=== PATIENT | female | born 1975 | race Caucasian/White ===

== ENCOUNTER 2018-11-02 19:51 | Observation (INO) | payer BC ==
[2018-11-02] MEDS ORDERED: Morphine 4 MG/ML VIAL ONE ×3 (20:05→21:10)
[2018-11-02] MEDS ORDERED: Adacel (T-DAP) 0.5 ML SYRINGE ONE (20:05)
[2018-11-02] MEDS ORDERED: Ondansetron PF 4 MG/2 ML Vial ONE (20:05)
[2018-11-02 20:13] LABS: #Basophils 0.1 thou/uL (0.0-0.2); #Eosinphils 0.3 thou/uL (0.0-0.7); #Lymphocytes 2.2 thou/uL (1.20-3.40); #Monocytes 0.5 thou/uL (0.11-0.59); #Neutrophils 3.9 thou/uL (1.40-6.50); %Eosinophils 3.6 % (0.0-10.0); %Lymphocytes 31.8 % (21.0-51.0); %Monocytes 7.4 % (0.0-10.0); %Neutrophils 56.2 % (42.0-75.0); Hemoglobin 13.3 g/dL (12.0-16.0); Mean Corpuscular HGB CONC 34.3 g/dL (32.0-36.0); Mean Corpuscular Volume 93.4 fL (78.0-98.0); Mean Platelet Volume 7.2 fL (7.4-10.4); Platelet Count 314 thou/uL (130-400); RBC Distribution Width 12.2 % (11.5-14.5); Red Blood Cell (RBC) Count 4.16 mill/uL (4.20-5.40)
[2018-11-02 20:20] LABS: PTT 27.4 SEC (22.9-36.1); Prothrombin Time 13.4 SEC (12.0-14.7)
[2018-11-02 20:23] LABS: D-Dimer Test Less than 0.27 *mcg/mL (0.27-0.43)
[2018-11-02 20:30] LABS: ALT (SGPT) 14 U/L (8-55); AST (SGOT) 15 U/L (5-34); Alkaline Phosphatase 85 U/L (40-150); Anion Gap 13 mmol/L (10-20); BUN (Urea Nitrogen) 14 mg/dL (7.0-18.7); Bilirubin, Total 0.3 mg/dL (0.2-1.2); CK (CPK) 53 U/L (29-168); Calc. Creatinine Clearance 0 mL/min (70-130); Calcium 10.4 mg/dL (7.8-10.44); Carbon Dioxide 28 mmol/L (22-29); Chloride 104 mmol/L (98-107); Estimated GFR-MDRD 76; Globulin 3.1 g/dL (2.4-3.5); Glucose 91 mg/dL (70-105); Potassium 3.6 mmol/L (3.5-5.1); Protein, Total 8.1 g/dL (6.0-8.3); Sodium 141 mmol/L (136-145)
[2018-11-02 21:00] LABS: Bilirubin Small (Negative); Blood, Urine Negative (Negative); Glucose, Urine (Dipstick) Negative (Negative); Leukocyte Small (Negative); Nitrite Negative (Negative); Protein, Urine (Dipstick) Trace mg/dL (Neg-Trace); Specific Gravity, Urine 1.025 (1.005-1.030); pH, Urine 6.5 (5.0-9.0)
[2018-11-02 21:01] LABS: Clarity Hazy (Clear)
[2018-11-02 21:02] LABS: Bacteria/HPF 1+ HPF (None Seen); RBC/HPF None Seen HPF (0-3); Squamous Epithelial 21-50 HPF (0-3)
[2018-11-02] MEDS ORDERED: SODIUM CHLORIDE IVPB SCH (21:30)
[2018-11-02] MEDS ORDERED: [UNRECOGNIZED DRUG - OTHER] IVPB SCH (21:30)
[2018-11-02] MEDS ORDERED: HOLD ALL ANTI-COAGULANTS/ANTI-PLATELETS/NSAIDS PO SCH (21:30)
[2018-11-02] MEDS ORDERED: CROTALIDAE POLYVALENT IMMUNE FAB IVPB SCH (21:30)
[2018-11-02 21:46] VITALS: BMI 21.2
[2018-11-02 21:46] LABS: Fibrinogen Less than 15 mg/dL (253-463)
[2018-11-02] MEDS ORDERED: diphenhydrAMINE 50 MG/ML VIAL IVP PRN (22:00)
[2018-11-02] MEDS ORDERED: Acetaminophen 500 MG TAB PO PRN (22:00)
[2018-11-02] MEDS ORDERED: Ondansetron PF 4 MG/2 ML Vial IVP PRN (22:00)
[2018-11-02] MEDS ORDERED: Morphine 4 MG/ML VIAL SLOW IVP PRN (22:00)
[2018-11-02 22:09] LABS: Pregu Control Background? CLEAR/WHITE (CLR/WHITE); Pregu Control Bar Appear? YES (CONTROL BAR); Specific Gravity 1.025 (1.002-1.036)
[2018-11-02 22:13] LABS: Pregnancy Test - Urine (BHCG) Negative (Negative)
[2018-11-02] MEDS ORDERED: Sodium Chloride 0.9% 1,000 ML IV SCH (23:45)
--- NOTE | 2018-11-03 04:38 | HP ---
CHIEF COMPLAINT: Copperhead snake bite. HISTORY OF PRESENT ILLNESS: Ms. Morley is a 43-year-old woman who presents with a copperhead snake bite to the inside of the right third finger. She reports noting dull aching pain with notable immediate swelling in her finger and then her hand. At this present time, edema tracks up just proximal to her elbow and is circumferential. The patient is receiving [employer] at present. She states she was pulling weeds from her garden. She saw and recognized the snake. She denies any numbness or tingling in her fingers. Reports pain in her hand with some limited range of motion. Pain has started to settle down to approximately 4/10 following morphine. She was initially seen at the [facility] ER where CroFab was ordered and initiated when she arrived here at [facility]. There was a slight delay in administering her treatment due to the need for test. This did come back negative and treatment was initiated. She did receive IV fluids at [facility] ER, a total of 1 L. REVIEW OF SYSTEMS: The patient denies having any headaches or dizziness. Reports feeling mildly nauseated, which she feels is associated with the morphine. No vomiting. No chest pain, palpitations, or shortness of breath. All other review of systems are negative. ALLERGIES: NO KNOWN DRUG ALLERGIES. CURRENT MEDICATIONS: 1. Lipitor. 2. Prilosec. 3. Sertraline. PAST MEDICAL HISTORY: 1. Tetanus up to date. 2. Hyperlipidemia. 3. Depression. SURGICAL HISTORY: None. SOCIAL HISTORY: She reports drinking 1 glass of wine a day. No smoking and no illicit drug use. PHYSICAL EXAMINATION: GENERAL: The patient appears well developed, well nourished, and is in no acute distress. VITAL SIGNS: Temperature 98.1, pulse 83, respirations 20, O2 saturation 100% on room air, blood pressure 115/59. HEENT: Normocephalic and atraumatic. Pupils are equal, round, and reactive to light. Sclerae without icterus. Oropharynx is clear. NECK: Supple without lymphadenopathy. LUNGS: Clear to auscultation bilaterally without wheezes, rales, or rhonchi. CARDIAC: Regular rate and rhythm. ABDOMEN: Soft, nontender, nondistended. Normoactive bowel sounds present. EXTREMITIES: No lower leg edema. Right upper extremity notable for edema involving her fingers up to just proximal to her elbow. No restrictions with range of motion to her elbow joint. She has slight ecchymosis involving the third right finger with bite harrington on the side of her finger. Has limited flexion of all fingers, but sensation is intact. Pulses equal bilaterally . No cyanosis. Not cool to touch. Extremity feels warm and dry. NEUROLOGIC: Alert and oriented x3. SKIN: Otherwise without any rash or jaundice. LABORATORY DATA: White blood count 7, hemoglobin 13.3, hematocrit 38.9, platelets 314. PT 13.4, INR 1, PTT 27.4, fibrinogen 15. D-dimer negative. Sodium 141, potassium 3. D-dimer less than 0.27. Sodium 141, potassium 3.6, chloride 104, carbon dioxide 28, anion gap 13, BUN 14, creatinine 0.82, GFR 76, glucose 91, calcium 10.4. Total bilirubin 0.3. AST 15, ALT 14, alkaline phosphatase 85. CK 53. Serum total protein 8.1, albumin 5.0. Urinalysis notable for trace ketones and small bilirubin, small leukocyte esterase, 4 to 6 white blood cells, 21 to 50 squamous epithelial cells, 1+ bacteria, and negative urine test. 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 She did visualize a copperhead and has a snake bite to the lateral aspect of her third right finger. She had immediate swelling in her finger, which then extended to her hand, proximal forearm, and now just proximal to the elbow. Full range of motion in the elbow with limited range of motion in her fingers. She has no signs of compartment syndrome. Pain significantly relieved with morphine. She did feel nauseated, therefore given Zofran. She will continue with fluids as per protocol. She has started [employer] and will undergo repeat laboratory studies including fibrinogen as per protocol. Fibrinogen currently less than 15. We will continue to monitor. The patient's case was discussed with Dr. Us, who agrees with plan of care as described above. Job ID: [id number]
[2018-11-03 05:08] LABS: #Eosinphils 0.1 thou/uL (0.0-0.7); #Lymphocytes 1.3 thou/uL (1.20-3.40); #Monocytes 0.7 thou/uL (0.11-0.59); #Neutrophils 4.8 thou/uL (1.40-6.50); %Basophils 0.4 % (0.0-1.0); %Eosinophils 1.7 % (0.0-10.0); %Lymphocytes 18.7 % (21.0-51.0); %Monocytes 9.7 % (0.0-10.0); %Neutrophils 69.5 % (42.0-75.0); Hemoglobin 11.4 g/dL (12.0-16.0); Mean Corpuscular Hemoglobin 33.2 pg (27.0-31.0); Mean Platelet Volume 7.2 fL (7.4-10.4); Platelet Count 239 thou/uL (130-400); RBC Distribution Width 12.2 % (11.5-14.5); Red Blood Cell (RBC) Count 3.44 mill/uL (4.20-5.40)
[2018-11-03 05:18] LABS: INR-International Normal Ratio 1.2; PTT 29.6 SEC (22.9-36.1); Prothrombin Time 15.4 SEC (12.0-14.7)
[2018-11-03 05:29] LABS: ALT (SGPT) 8 U/L (8-55); AST (SGOT) 10 U/L (5-34); Albumin 3.4 g/dL (3.5-5.0); Alkaline Phosphatase 58 U/L (40-150); Anion Gap 10 mmol/L (10-20); BUN (Urea Nitrogen) 13 mg/dL (7.0-18.7); Bilirubin, Total 0.4 mg/dL (0.2-1.2); CK (CPK) 45 U/L (29-168); Calc. Creatinine Clearance 90 mL/min (70-130); Calcium 8.3 mg/dL (7.8-10.44); Carbon Dioxide 22 mmol/L (22-29); Chloride 110 mmol/L (98-107); Estimated GFR-MDRD Greater than 90; Glucose 103 mg/dL (70-105); Potassium 3.9 mmol/L (3.5-5.1); Protein, Total 5.4 g/dL (6.0-8.3); Sodium 138 mmol/L (136-145)
[2018-11-03 08:15] VITALS: TEMP 98.1
[2018-11-03 13:18] VITALS: BP 91/54
[2018-11-03 13:18] LABS: PTT 27.1 SEC (22.9-36.1)
[2018-11-03 13:20] LABS: Prothrombin Time 13.5 SEC (12.0-14.7)
== END 2018-11-03 14:35 | disposition home or self-care (01) ==
LOC: SCSER 19:51 → 2SW 21:32
PROVIDERS: ADMIT Family Medicine; ATTEND Family Medicine
DX: T63.091A Toxic effect of venom of other snake, accidental (unintentional), initial encounter (principal); M79.641 Pain in right hand; E78.5 Hyperlipidemia, unspecified; F32.9 Major depressive disorder, single episode, unspecified; Z79.899 Other long term (current) drug therapy
CPT/HCPCS: 36415; 80053; 81003; 81015; 81025; 82550; 85025; 85379; 85384; 85610; 85730; 86850; 86900; 86901; 90471; 90715; 94760; 96361; 96365; 96372; 96374; 96375; 96376; G0378; J0840; J1200; J2270; J2405; J7050